=== PATIENT | female | born 1945 | race Caucasian/White ===

== ENCOUNTER → 2017-05-08 | Outpatient (CLI) | payer OTHER ==
[2015-12-18 21:37] VITALS: BP 143/85
== END ==
LOC: RAD 10:01
PROVIDERS: ATTEND Family Medicine
DX: Z12.31 Encounter for screening mammogram for malignant neoplasm of breast (principal)
CPT/HCPCS: 77067

== ENCOUNTER 2017-10-25 12:23 | Emergency (ER) | payer OTHER ==
[2017-10-25 12:30] VITALS: BP 150/72; BMI 23.2
--- NOTE | 2017-10-25 13:05 | DR.ALLERGY ---
HPI - Time Seen Time seen: 13:20 - PCP Primary Care Physician: rehana - Complaint/Symptoms Chief Complaint Doctors Comments: Patient presented to the ED with complaint of swelling of her left upper lip onset this AM. She take Lisinoprel as an antihypertensive. She denies any shortness of breath. Chief Complaint:: pt stated her bottom lip started swelling this morning. pt stated she does take lisinopril. - Source History Provided: Patient - Mode of Arrival Mode of Arrival: Ambulatory - Timing Onset of Chief Complaint: 10/25/17 PMH - PMH Past Medical History: Yes Past Medical History: Dyslipidemia, Hypertension Past Surgical History: Yes Surgical History: Hysterectomy - Family History History of Family Medical Conditions: Yes Family Medical History: Diabetes Mellitus, Hypertension - Social History Does patient currently use any type of tobacco product: No Have you used tobacco products in the last 12 months: No Type of Tobacco Use: None Does any household member use tobacco: No Alcohol Use: None Do you use any recreational Drugs:: No Lives With: Family Lives Where: Home - infectious screening In the last 2 months have you had wt loss of >10#?: NO Have you had fever, night sweats or hemotysis?: No Have you traveled outside the country in the last 6 months?: No Isolation: Standard ROS - Review of Systems Eyes: No Symptoms Reported ENTM: No Symptoms Reported Respiratoy: No Symptoms Reported Cardiovascular: No Symptoms Reported Gastrointestinal/Abdominal: No Symptoms Reported Genitourinary: No Symptoms Reported Neurological: No Symptoms Reported Musculoskeletal: No Symptoms Reported Integumentary: No Symptoms Reported Hematologic/Lymphatic: No Symptoms Reported Endocrine: No Symptoms Reported Psychiatric: No Symptoms Reported All Other Systems: Reviewed and Negative PE - Vitals Vital Signs: Temp Pulse Resp BP Pulse Ox 10/25/17 12:24 97.9 F 67 16 150/72 98 12/18/15 21:31 143/85 - Constitutional Limitations: No Limitations General Appearance: Alert, In No Apparent Distress - Head Head Exam: Normal Inspection, Atraumatic - Eyes Eye exam: Normal Appearance, PERRL, EOMI - ENT ENT Exam: Normal Exam Mouth Exam: Normal Inspection, Other (lower lip edema) Throat Exam: Normal Inspection - Neck Neck Exam: Normal Inspection - Chest Chest Inspection: Normal Inspection - Respiratory Respiratory Exam: Normal Lung Sounds Bilat Respiratory Exam: Bilateral Clear to Auscultation - Cardiovascular Cardiovascular Exam: Regular Rate, Normal Rhythm - Abdominal Exam Abdominal Exam: Normal Inspection Abdominal Tenderness: negative: RUQ, RLQ, LUQ, LLQ, Epigastrium, Suprapubic, Diffuse, Mild, Moderate, Severe, Other - Extremities Extremities Exam: Normal Inspection, Full ROM - Back Back Exam: Normal Inspection, Full ROM - Neurologic Neurological Exam: Alert, Oriented X3, CN II-XII Intact - Psychiatric Psychiatric Exam: Normal Affect, Normal Mood, Depressed - Skin Skin Exam: Warm, Dry, Intact Type of Lesion: Rash - Diagnosis Discharge Problem: Angioedema Qualifiers: Encounter type: initial encounter Qualified Code(s): T78.3XXA - Angioneurotic edema, initial encounter - Discharge Plan Condition: Stable - Follow ups/Referrals Follow ups/Referrals: RAMYA KIM [Primary Care Provider] - 3 days - Instructions
[2017-10-25] MEDS ORDERED: SOLU-Medrol 125 MG VIAL IVP ONE (13:26)
[2017-10-25] MEDS ORDERED: BENADRYL INJ 50 MG VIAL IM ONE (13:27)
[2017-10-25] MEDS ORDERED: ZANTAC INJ 50 MG in NS 50 ML IV 50 ML IV ONE (13:28)
[2017-10-25] MEDS ORDERED: BENADRYL INJ 50 MG VIAL ONE (13:29)
[2017-10-25] MEDS ORDERED: SOLU-Medrol 125 MG VIAL ONE (13:29)
[2017-10-25] MEDS ORDERED: ZANTAC INJ ONE (13:48)
[2017-10-25] MEDS ORDERED: NS 100 ML IV 100 ML IV ONE (13:49)
== END 2017-10-25 15:23 | disposition home or self-care (01) ==
LOC: ER 12:33
DX: T78.3XXA Angioneurotic edema, initial encounter (principal)
CPT/HCPCS: 96365; 96372; 96374; 96375; 99283; A4222; J1200; J2780; J2930